=== PATIENT | male | born 1965 | race African-American/Black ===

== ENCOUNTER 2017-04-24 04:18 | Inpatient (IN) | payer OTHER ==
[~2017-04-24] VITALS: Ht 167.6 cm; Wt 153.6 kg
[2017-04-24] VITALS (9 sets, daily range): BP systolic 91–134; BP diastolic 57–81
--- NOTE | ~2017-04-24 | EKG ---
[address] [place] [address] ELECTROCARDIOGRAM REPORT Name: GHULAM EMERSON Room #: 209-P ADM IN M.R.#: [id number] Admission: 04/24/17 Attend Phys: Luis Antonio Barragan MD Discharge: Date of : 61 Report #: [id number] THIS REPORT FOR: //name// [facility] Test Date: 2017-04-24 Test Time: 10:23:24 Pat Name: GHULAM EMERSON Department: Room: 209 P Gender: M Interactive Media Director: Tyree COLE : 1965 Requested By: Jessica Talley Order Number: [id number] MD: Rachid He Measurements Intervals [place] Rate: 106 P: 41 ME: 189 QRS: 8 QRSD: 92 T: 104 QT: 391 QTc: 520 Interpretive Statements Sinus tachycardia Low voltage, extremity leads Nonspecific ST and T abnrm, Prolonged QT interval Compared to ECG 04/24/2017 04:22:34 Ventricular premature complex(es) no longer present Electronically Signed On 04-24-2017 17:07:06 CDT by Rachid He [email or web address] <ELECTRONICALLY SIGNED> By: Rachid He MD, FACC 04/24/17 1707 1023 1023 Rachid He MD, [facility] /EPI
--- NOTE | ~2017-04-24 | EKG ---
[address] [place] [address] ELECTROCARDIOGRAM REPORT Name: GHULAM EMERSON Room #: 209-P ADM IN M.R.#: [id number] Admission: 04/24/17 Attend Phys: Jose Francisco Valdez MD Discharge: Date of : 61 Report #: [id number] THIS REPORT FOR: //name// [facility] Test Date: 2017-04-27 Test Time: 06:26:29 Pat Name: GHULAM EMERSON Department: Room: 209 P Gender: M Product/Industry Consultant: matthew : 1965 Requested By: Antwan Bal Order Number: [id number] MD: Rachid He Measurements Intervals [place] Rate: 80 P: -4 DE: 187 QRS: 23 QRSD: 91 T: 87 QT: 383 QTc: 442 Interpretive Statements Sinus rhythm Ventricular premature complex Low voltage, extremity leads Nonspecific T wave abnormality Compared to ECG 04/24/2017 14:55:05 Ventricular premature complex(es) now present Electronically Signed On 04-27-2017 9:02:49 CDT by Rachid He [email or web address] <ELECTRONICALLY SIGNED> By: Rachid He MD, [facility] 04/27/17901 5 5 Rachid He MD, [facility] /EPI
--- NOTE | ~2017-04-24 | EKG ---
[address] [place] [address] ELECTROCARDIOGRAM REPORT Name: GHULAM EMERSON Room #: 209-P ADM IN M.R.#: [id number] Admission: 04/24/17 Attend Phys: Luis Antonio Barragan MD Discharge: Date of : 61 Report #: [id number] THIS REPORT FOR: //name// [facility] Test Date: 2017-04-24 Test Time: 04:22:34 Pat Name: GHULAM EMERSON Department: Room: 209 Gender: M Phlebotomist Prn: ZULEYMA : 1965 Requested By: Jenny Wilson Order Number: [id number] MD: Rachid He Measurements Intervals [place] Rate: 103 P: 38 FL: 187 QRS: 0 QRSD: 87 T: 103 QT: 400 QTc: 524 Interpretive Statements Sinus tachycardia Ventricular bigeminy Low voltage, extremity leads Prolonged QT interval No previous ECG available for comparison Electronically Signed On 04-24-2017 8:29:19 CDT by Rachid He [email or web address] <ELECTRONICALLY SIGNED> By: Rachid He MD, [facility] 04/24/17 0829 0422 1 Rachid He MD, FACC /EPI
--- NOTE | ~2017-04-24 | 2DMMODE ---
[facility] [address] [place] [address] 2 D/M-MODE ECHOCARDIOGRAM Name: GHULAM EMERSON Room #: 209-P ADM IN M.R.#: [id number] Admission: 04/24/17 Attend Phys: Dari Yoder Discharge: Date of : 61 Date of Service: 04/24/17 1512 Report #: [id number] THIS REPORT FOR: //name// APPROVED REPORT Study performed: 04/24/2017 13:41:51 EXAM: Comprehensive 2D, Doppler, and color-flow Echocardiogram Patient Location: Bedside Room #: 209 Status: routine BSA: 2.50 Other Information Study Quality: Fair Indications ICD: Congestive Heart Failure COPD Diabetes Cardiomyopathy Hypertension/HDD Echo Enhancing Agent Indication: Endocardial border delineation Agent(s) / Amount(s) Used: Optison 8 cc Volumes Left Atrial Volume (Systole) Single Plane 4CH: 75.28 mL Single Plane 2CH: 66.51 mL LA ESV Index: 31.00 mL/m2 Aortic Valve AoV Peak Marlo.: 1.17 m/s AO Peak Gr.: 5.43 mmHg Pulmonary Valve PV Peak Marlo.: 0.55 m/s PV Peak Gr.: 1.21 mmHg Left Ventricle The left ventricle is normal size. There is global hypokinesis of the left ventricle. There is normal left ventricular wall thickness. Left [facility] [address] [place] [address] 2 D/M-MODE ECHOCARDIOGRAM Name: GHULAM EMERSON Room #: 209-P ADM IN M.R.#: [id number] Admission: 04/24/17 Attend Phys: Dari Yoder Discharge: Date of : 61 Date of Service: 04/24/17 1512 Report #: [id number] ventricular ejection fraction is moderate to severely decreased. LVEF is 25-30%. This study is not technically sufficient to allow evaluation of the LV diastolic function due to atrial fibrillation. Right Ventricle The right ventricle is normal size. Right ventricular systolic function is grossly normal. ICD lead is present in the right ventricle. Atria Left atrium is at the upper limits of normal. The right atrium size is normal. ICD lead is present in the right atrium. Aortic Valve The aortic valve is not well visualized. No aortic regurgitation is present. There is no aortic valvular stenosis. Mitral Valve The mitral valve is normal in structure. Mild mitral regurgitation. No evidence of mitral valve stenosis. Tricuspid Valve Tricuspid valve is not well visualized. There is no tricuspid valve regurgitation noted. Pulmonic Valve Pulmonic valve is not well visualized. There is no pulmonic valvular regurgitation. Great Vessels The aortic root is normal in size. IVC is not well visualized. Pericardium There is no pericardial effusion. <Conclusion> The left ventricle is normal size. Left ventricular ejection fraction is moderate to severely decreased. LVEF is 25-30%. The right ventricle is normal size. ICD lead is present in the right ventricle. Left atrium is at the upper limits of normal. The right atrium size is normal. [facility] [address] [place] [address] 2 D/M-MODE ECHOCARDIOGRAM Name: GHULAM EMERSON Room #: 209-P ADM IN M.R.#: [id number] Admission: 04/24/17 Attend Phys: Dari Yoder Discharge: Date of : 61 Date of Service: 04/24/171511 Report #: [id number] ICD lead is present in the right atrium. No aortic regurgitation is present. There is no aortic valvular stenosis. The mitral valve is normal in structure. Mild mitral regurgitation. Tricuspid valve is not well visualized. Pulmonic valve is not well visualized. <ELECTRONICALLY SIGNED> By: Livan Klein MD 04/24/171511 11 11 Livan Klein MD /INF
--- NOTE | ~2017-04-24 | EKG ---
[address] [employer] [place] [address] ELECTROCARDIOGRAM REPORT Name: GHULAM EMERSON Room #: 209-P ADM IN M.R.#: [id number] Admission: 04/24/17 Attend Phys: Jose Francisco Valdez MD Discharge: Date of : 61 Report #: [id number] THIS REPORT FOR: //name// [facility] Test Date: 2017-04-26 Test Time: 14:32:37 Pat Name: GHULAM EMERSON Department: Room: 209 P Gender: M Hairspring Fabrication Supervisor: Dari WORLEY : 1965 Requested By: Antwan Bal Order Number: [id number] MD: Rachid He Measurements Intervals [place] Rate: 77 P: -4 NV: 198 QRS: 3 QRSD: 86 T: 115 QT: 387 QTc: 438 Interpretive Statements Sinus rhythm Low voltage, extremity leads Nonspecific T abnrm, anterolateral leads Compared to ECG 04/24/2017 14:55:05 Sinus rhythm has replaced atrial fibrillation Electronically Signed On 04-27-2017 8:57:40 CDT by Rachid He [email or web address] <ELECTRONICALLY SIGNED> By: Rachid He MD, [facility] 04/27/17 0857 1432 1432 Rachid He MD, [facility] /EPI
--- NOTE | ~2017-04-24 | EKG ---
[place] [address] [facility] [place] [address] ELECTROCARDIOGRAM REPORT Name: GHULAM EMERSON Room #: 209-P ADM IN M.R.#: [id number] Admission: 04/24/17 Attend Phys: Jose Francisco Valdez MD Discharge: Date of : 61 Report #: [id number] THIS REPORT FOR: //name// [facility] Test Date: 2017-04-26 Test Time: 03:06:05 Pat Name: GHULAM EMERSON Department: Room: 209 P Gender: M General Assembler Installer: ANDERSON : 1965 Requested By: Bibi Pierre Order Number: [id number] MD: Rachid He Measurements Intervals [place] Rate: 157 P: [place]: QRS: 24 QRSD: 79 T: QT: 322 QTc: 521 Interpretive Statements Atrial flutter with varied AV block, Low voltage, extremity leads ST depression, probably rate related Prolonged QT interval Compared to ECG 04/24/2017 14:55:05 no significant change was found Electronically Signed On 04-27-2017 8:47:21 CDT by Rachid He [email or web address] <ELECTRONICALLY SIGNED> By: Rachid He MD, [facility] 04/27/17 0847 0306 0306 Rachid He MD, [facility] /EPI
--- NOTE | ~2017-04-24 | EKG ---
[address] [place] [address] ELECTROCARDIOGRAM REPORT Name: GHULAM EMERSON Room #: 209-P ADM IN M.R.#: [id number] Admission: 04/24/17 Attend Phys: Jose Francisco Valdez MD Discharge: Date of : 61 Report #: [id number] THIS REPORT FOR: //name// [facility] Test Date: 2017-04-26 Test Time: 11:46:49 Pat Name: GHULAM EMERSON Department: Room: 209 P Gender: M Senior Sustainability Consultant: Tyree COLE : 1965 Requested By: Antwan Bal Order Number: [id number] MD: Rachid He Measurements Intervals [place] Rate: 122 P: LA: QRS: 11 QRSD: 85 T: 72 QT: 361 QTc: 515 Interpretive Statements Atrial fibrillation Nonspecific ST and T wave abnormality Compared to ECG 04/24/2017 14:55:05 No significant change was found Electronically Signed On 04-27-2017 8:54:30 CDT by Rachid He [email or web address] <ELECTRONICALLY SIGNED> By: Rachid He MD, [facility] 04/27/17 0854 1146 1146 Rachid He MD, [facility] /EPI
--- NOTE | ~2017-04-24 | CNG ---
[facility] [place] [address] CYTO-NONGYN REPORT PROCEDURE Name: FLACO GARY Room #: 209-P ADM IN M.R.#: [id number] Admission: 04/24/17 Date of : 61 Discharge: Report #: [id number] Path Case #: [id number] CYTOPATHOLOGY REPORT COLLECTION DATE: 04/24/2017 RECEIVED DATE: 04/24/2017 SUBMITTING PHYS: Dr. Jessica Talley OTHER PHYS: Dr. Yung Jensen CLINICAL HISTORY: Resp distress, hypoxia, elevated lactate, COPD. SPECIMEN(S) RECEIVED: A.Sputum * * * * * * * * * * * * FINAL DIAGNOSIS: A. Sputum: - No malignant cells identified. Pulmonary macrophages, squamous epithelial cells, fungal elements (yeast and pseudohyphae) and acute and chronic inflammatory cells present. PATHOLOGIST: Kate Estrada M.D. REPORT ELECTRONICALLY SIGNED BY: Kate Estrada M.D. DATE/TIME: 04/25/2017 10:47 * * * * * * * * * * * * GROSS PATHOLOGY: A. Sputum: The specimen is submitted unfixed, labeled "Flaco Gary". Received by the Cytology Department is 1 mL of yellow mucoid fluid. One ThinPrep slide was prepared. (clt 04.24.2017) DETASSELING CREW SUPERVISOR(S): RANDEE Chi([facility] INITIAL CPT CODE(S): A; 43637 Professional services performed by [facility] at [facility] [address], [place] [address] Technical services performed by [facility] at [address] [place] [address], [address], [place] [address]. [facility] [address] [place] [address], [facility] [address] [place], [place] [address] [place] [address] [place] [address] CYTO-NONGYN REPORT PROCEDURE Name: KIFLACO Room #: 209-P ADM IN M.R.#: [id number] Admission: 04/24/17 Date of : 61 Discharge: Report #: [id number] Path Case #: [id number] PHONE: [phone] DIRECTOR: Mitch Franklin M.D. * * * END OF REPORT * * *
--- NOTE | ~2017-04-24 | EKG ---
[address] [place] [address] ELECTROCARDIOGRAM REPORT Name: GHULAM EMERSON Room #: 209-P ADM IN M.R.#: [id number] Admission: 04/24/17 Attend Phys: Luis Antonio Barragan MD Discharge: Date of : 61 Report #: [id number] THIS REPORT FOR: //name// [facility] Test Date: 2017-04-24 Test Time: 14:55:05 Pat Name: GHULAM EMERSON Department: Room: 209 P Gender: M Chain Maker: Dari WORLEY : 1965 Requested By: Luis Antonio Barragan Order Number: [id number] MD: Rachid He Measurements Intervals [place] Rate: 171 P: NE: QRS: 57 QRSD: 81 T: 96 QT: 301 QTc: 508 Interpretive Statements Atrial flutter with a rapid ventricular response Nonspecific ST and T wave abnormality Low voltage, extremity leads Compared to ECG 04/24/2017 04:22:34 Atrial flutter has replaced sinus rhythm Electronically Signed On 04-24-2017 17:10:24 CDT by Rachid He [email or web address] <ELECTRONICALLY SIGNED> By: Rachid He MD, FACC 04/24/17 1710 1455 1455 Rachid He MD, [facility] /EPI
--- NOTE | ~2017-04-24 | EKG ---
[address] [address] ELECTROCARDIOGRAM REPORT Name: GHULAM EMERSON Room #: 209-P ADM IN M.R.#: [id number] Admission: 04/24/17 Attend Phys: Jose Francisco Valdez MD Discharge: Date of : 61 Report #: [id number] THIS REPORT FOR: //name// [facility] Test Date: 2017-04-28 Test Time: 07:49:42 Pat Name: GHULAM EMERSON Department: Room: 209 P Gender: M Belt Measurer: CANDI : 1965 Requested By: Antwan Bal Order Number: [id number] MD: Gregory Ramirez Measurements Intervals [place] Rate: 81 P: -8 SD: 181 QRS: -6 QRSD: 90 T: 46 QT: 467 QTc: 543 Interpretive Statements Sinus rhythm Ventricular premature complex Inferior infarct, old Prolonged QT interval Compared to ECG 04/27/2017 06:26:29 Myocardial infarct finding now present Prolonged QT interval now present T-wave abnormality no longer present Electronically Signed On 04-28-2017 12:45:14 CDT by Gregory Ramirez [email or web address] <ELECTRONICALLY SIGNED> By: Gregory Ramirez MD 04/28/17 1245 0749 0749 Gregory Ramirez MD /EPI
[2017-04-24] MEDS ORDERED: CARVEDILOL25 MG PO (04:32)
[2017-04-24] MEDS ORDERED: PRINIVIL20 MG PO (04:33)
[2017-04-24] MEDS ORDERED: METFORMIN HCL500 MG PO (04:34)
[2017-04-24] MEDS ORDERED: POTASSIUM20 PO (04:34)
[2017-04-24] MEDS ORDERED: GLIPIZIDE 10 MG10 MG PO (04:34)
[2017-04-24] MEDS ORDERED: NEXIUM40 MG PO (04:35)
[2017-04-24] MEDS ORDERED: CLARITIN10 MG PO (04:35)
[2017-04-24] MEDS ORDERED: LASIX 20 MG TAB20 MG PO (04:35)
[2017-04-24] MEDS ORDERED: BISOPROLOL FUMA10 MG PO (04:38)
[2017-04-24 04:50] LABS: ABSOLUTE NEUTROPHILS 5.3 thou/uL (1.4-8.2); BASOPHILS 1.1 % (0.0-2.0); EOSINOPHILS 1.6 % (0.0-3.0); HEMATOCRIT 42.8 % (42.0-52.0); HEMOGLOBIN 14.2 gm/dL (14.0-18.0); LYMPHOCYTES 35.8 % (24.0-44.0); MCH 31.3 pg (26.0-34.0); MCHC 33.2 g/dL (28.0-37.0); MCV 94.1 fL (80.0-100.0); MONOCYTES 8.2 % (1.0-8.0); PLATELET COUNT 309 thou/uL (150-400); POLYS 53.3 % (36.0-66.0); RBC 4.55 mil/uL (4.50-6.00); RDW 14.2 % (10.5-14.5)
[2017-04-24 04:51] LABS: MANUAL DIFF NO
[2017-04-24 04:58] LABS: ABG SAMPLE TYPE ARTERIAL; BE(vivo) -1.8 mmol/L (-2 to +3); HCO3 23.1 mmol/L (22.0-26.0); LACTATE 2.88 mmol/L (0.5-2.0); O2(CT) 18.7 mL/dL (15.0-23.0); O2Hb 90.1 % (92.0-98.0); STICK SITE L.RADIAL; sO2 92.5 % (92.0-98.0); tCO2 24.4 mmol/L (24.0-30.0)
[2017-04-24 05:11] LABS: ANION GAP 12 mmol/L (7-16); BUN 16 mg/dL (7-18); CALCIUM 9.5 mg/dL (8.5-10.1); CHLORIDE 104 mmol/L (98-107); CO2 24 mmol/L (21-32); CREATININE 1.6 mg/dL (0.7-1.3); GLUCOSE 177 mg/dL (74-106); POTASSIUM 4.4 mmol/L (3.5-5.1); SODIUM 140 mmol/L (136-145)
[2017-04-24 05:20] LABS: TROPONIN-I < 0.04 ng/mL (<0.04-0.07)
[2017-04-24] MEDS ORDERED: SYMBICORT80 MCG/4.1 INH (09:58)
[2017-04-24] MEDS ORDERED: FLOVENT DISKUS50 MCG (10:00)
[2017-04-25 00:58] VITALS: BP 105/73
[2017-04-25 03:55] LABS: HEMATOCRIT 41.6 % (42.0-52.0); HEMOGLOBIN 13.5 gm/dL (14.0-18.0); MCH 30.6 pg (26.0-34.0); MCHC 32.4 g/dL (28.0-37.0); MCV 94.5 fL (80.0-100.0); RBC 4.4 mil/uL (4.50-6.00); WBC 16.6 thou/uL (4.0-11.0)
[2017-04-25 04:01] LABS: CALCIUM 9.5 mg/dL (8.5-10.1); CREATININE 1.3 mg/dL (0.7-1.3); POTASSIUM 4.3 mmol/L (3.5-5.1)
[2017-04-25 04:19] VITALS: BP 97/65
[2017-04-25 05:56] VITALS: BP 114/78
[2017-04-25 07:30] VITALS: BP 110/74
[2017-04-25 07:32] VITALS: BP 97/65
[2017-04-26] VITALS (14 sets, daily range): BP systolic 103–136; BP diastolic 66–94
[2017-04-26 09:25] LABS: HEMATOCRIT 42.7 % (42.0-52.0); HEMOGLOBIN 13.8 gm/dL (14.0-18.0); MCH 30.8 pg (26.0-34.0); MCHC 32.4 g/dL (28.0-37.0); RBC 4.49 mil/uL (4.50-6.00); RDW 14.3 % (10.5-14.5); WBC 10.9 thou/uL (4.0-11.0)
[2017-04-26 09:35] LABS: CALCIUM 9.5 mg/dL (8.5-10.1); CREATININE 1.4 mg/dL (0.7-1.3); MAGNESIUM 1.7 mg/dL (1.8-2.4); POTASSIUM 4.5 mmol/L (3.5-5.1)
[2017-04-26 15:03] LABS: ABG SAMPLE TYPE ARTERIAL; BE(vivo) -1.6 mmol/L (-2 to +3); HCO3 21.8 mmol/L (22.0-26.0); LACTATE 2.45 mmol/L (0.5-2.0); O2(CT) 18.8 mL/dL (15.0-23.0); O2Hb 89.4 % (92.0-98.0); PCO2 33.4 mmHg (35.0-45.0); PO2 58.6 mmHg (80.0-100.0); STICK SITE R.BRACHIAL; pH 7.433 (7.360-7.450); sO2 91.5 % (92.0-98.0); tCO2 22.8 mmol/L (24.0-30.0)
[2017-04-26 15:13] LABS: HEMATOCRIT 42.5 % (42.0-52.0); HEMOGLOBIN 13.7 gm/dL (14.0-18.0); MCH 30.6 pg (26.0-34.0); MCHC 32.3 g/dL (28.0-37.0); MCV 94.6 fL (80.0-100.0); RBC 4.49 mil/uL (4.50-6.00); RDW 14.4 % (10.5-14.5); WBC 13.1 thou/uL (4.0-11.0)
[2017-04-26 15:20] LABS: ANION GAP 9 mmol/L (7-16); BUN 24 mg/dL (7-18); CALCIUM 9.2 mg/dL (8.5-10.1); CHLORIDE 101 mmol/L (98-107); CO2 21 mmol/L (21-32); CREATININE 1.5 mg/dL (0.7-1.3); GLUCOSE 401 mg/dL (74-106); POTASSIUM 4.7 mmol/L (3.5-5.1); SODIUM 131 mmol/L (136-145)
[2017-04-26 15:30] LABS: TROPONIN-I < 0.04 ng/mL (<0.04-0.07)
[2017-04-27 03:13] LABS: HEMATOCRIT 42.6 % (42.0-52.0); HEMOGLOBIN 13.6 gm/dL (14.0-18.0); MCH 30.2 pg (26.0-34.0); MCHC 31.9 g/dL (28.0-37.0); MCV 94.7 fL (80.0-100.0); RBC 4.5 mil/uL (4.50-6.00); RDW 14.7 % (10.5-14.5); WBC 12.5 thou/uL (4.0-11.0)
[2017-04-27 03:25] LABS: CALCIUM 9.2 mg/dL (8.5-10.1); CREATININE 1.2 mg/dL (0.7-1.3); MAGNESIUM 1.9 mg/dL (1.8-2.4); POTASSIUM 4.4 mmol/L (3.5-5.1)
[2017-04-27 05:25] VITALS: BP 112/57
[2017-04-27 07:17] VITALS: BP 102/71
[2017-04-27 11:28] VITALS: BP 102/77
[2017-04-27 15:33] VITALS: BP 100/70
[2017-04-27 19:35] VITALS: BP 118/78
[2017-04-28 03:12] LABS: HEMATOCRIT 39.7 % (42.0-52.0); MCHC 32.7 g/dL (28.0-37.0); MCV 94.8 fL (80.0-100.0); RBC 4.19 mil/uL (4.50-6.00); RDW 14.1 % (10.5-14.5)
[2017-04-28 03:16] VITALS: BP 113/82
[2017-04-28 03:20] LABS: CALCIUM 8.7 mg/dL (8.5-10.1); CREATININE 1.3 mg/dL (0.7-1.3); MAGNESIUM 1.8 mg/dL (1.8-2.4); POTASSIUM 4.3 mmol/L (3.5-5.1)
[2017-04-28 07:40] VITALS: BP 112/75
[2017-04-28 11:25] VITALS: BP 141/81
[2017-04-28] MEDS ORDERED: CEFUROXIME250 MG PO (11:54)
[2017-04-28] MEDS ORDERED: DIGOXIN250 MCG PO (11:56)
[2017-04-28] MEDS ORDERED: ADULT LOW DOSE81 MG PO (11:58)
[2017-04-28] MEDS ORDERED: SORINE 80 MG TA80 M1 PO (11:58)
[2017-04-28] MEDS ORDERED: LANTUS SOL100 UNIT/1 SUBQ (12:24)
[2017-04-28 12:30] VITALS: BP 99/73
[2017-04-28 12:50] VITALS: BP 99/73
== END 2017-04-28 13:39 | disposition home or self-care (01) | DRG 871 ==
LOC: ER 04:18 → EROBS 05:33 → 2N 05:33
PROVIDERS: Emergency Medicine; Internal Medicine; Nurse Practitioner Family
DX: A41.9 Sepsis, unspecified organism (principal); J96.01 Acute respiratory failure with hypoxia; J18.9 Pneumonia, unspecified organism; I50.43 Acute on chronic combined systolic (congestive) and diastolic (congestive) heart failure; N17.9 Acute kidney failure, unspecified; I13.0 Hypertensive heart and chronic kidney disease with heart failure and stage 1 through stage 4 chronic kidney disease, or unspecified chronic kidney disease; J44.0 Chronic obstructive pulmonary disease with (acute) lower respiratory infection; J44.1 Chronic obstructive pulmonary disease with (acute) exacerbation; I42.8 Other cardiomyopathies; F17.210 Nicotine dependence, cigarettes, uncomplicated; G47.33 Obstructive sleep apnea (adult) (pediatric); E11.22 Type 2 diabetes mellitus with diabetic chronic kidney disease; J22 Unspecified acute lower respiratory infection; J30.2 Other seasonal allergic rhinitis; N18.9 Chronic kidney disease, unspecified; I48.91 Unspecified atrial fibrillation; Z79.82 Long term (current) use of aspirin; Z95.810 Presence of automatic (implantable) cardiac defibrillator; Z79.899 Other long term (current) drug therapy
CPT/HCPCS: 10081